=== PATIENT | female | born 1965 | race Two or more races ===

== ENCOUNTER → 2025-01-06 | Emergency (ER) | payer OTHER ==
[~2025-01-06] VITALS: Ht 160 cm; Wt 88.5 kg
[~2025-01-06] MED LIST: AMLODIPINE-OLM1 EAC2; ATORVASTATIN CA10 MG PO; DICLOFENAC SODI75 MG PO; LASIX20 MG; NORFLEX100MG PO; PENTOXIFYLLINE400 MG PO; TENORMIN50 M1; ZESTRIL20 MG
== END | disposition left against medical advice (07) ==
LOC: ER 23:14
DX: Z53.21 Procedure and treatment not carried out due to patient leaving prior to being seen by health care provider (principal)